=== PATIENT | male | born 1945 | race Caucasian/White ===

== ENCOUNTER 2019-04-30 05:49 | Emergency (ER) | payer OTHER ==
[~2019-04-30] VITALS: Ht 182.9 cm; Wt 115.2 kg
[~2019-04-30 05:49] MED LIST: ALLOPURINOL 10100 M1 PO; ASPIRIN81 M2 PO; AVAPRO300 MG PO; CARVEDILOL25 MG PO; DILTIAZEM 24HR240 MG PO; ENALAPRIL MALEA20 MG PO; HYDROCHLOROTHIA25 M1 PO; MOBIC7.5 M1 PO; POTASSIUM CHLO10 ME1 PO; SIMVASTATIN40 MG PO; TRAMADOL 50 MG50 MG PO
[2019-04-30] MEDS ORDERED: PROBIOTIC1 EAC7 PO (06:00)
[2019-04-30] MEDS ORDERED: VITAMIN D310 MC1 PO (06:01)
[2019-04-30] MEDS ORDERED: METFORMIN HCL500 M3 PO (06:02)
[2019-04-30] MEDS ORDERED: PLAQUENIL200 MG PO (06:06)
[2019-04-30] MEDS ORDERED: PROSCAR 5MG TABL5 M1 PO (06:06)
[2019-04-30] MEDS ORDERED: FARXIGA5 MG PO (06:07)
[2019-04-30] MEDS ORDERED: CARBIDOPA-LEVO1 EAC6 PO (06:08)
[2019-04-30] MEDS ORDERED: NF (06:11)
[2019-04-30 06:52] LABS: HEMATOCRIT 43.4 % (42.0-52.0); HEMOGLOBIN 14.6 gm/dL (14.0-18.0); MCH 31.2 pg (26.0-34.0); MCHC 33.6 g/dL (28.0-37.0); MCV 93.1 fL (80.0-100.0); PLATELET COUNT 124 thou/uL (150-400); RBC 4.66 mil/uL (4.50-6.00); RDW 14.4 % (10.5-14.5); WBC 11.8 thou/uL (4.0-11.0)
[2019-04-30 07:10] LABS: CALCIUM 11.5 mg/dL (8.5-10.1); CREATININE 1.6 mg/dL (0.7-1.3); POTASSIUM 4.2 mmol/L (3.5-5.1)
[2019-04-30 07:15] LABS: ALBUMIN 3.7 g/dL (3.4-5.0); TOTAL BILIRUBIN 4.2 mg/dL (<0.1-1.0); TOTAL PROTEIN 7.1 g/dL (6.4-8.2)
[2019-04-30 07:46] LABS: ABSOLUTE NEUTROPHILS 10.3 thou/uL (1.4-8.2)
[2019-04-30 07:47] LABS: ANISOCYTOSIS SLIGHT
[2019-04-30 07:55] LABS: URINE BILIRUBIN 1+ (Negative); URINE BLOOD NEGATIVE (Negative); URINE CLARITY CLEAR; URINE COLOR YELLOW; URINE GLUCOSE-RANDOM* 3+ (Negative); URINE KETONES NEGATIVE (Negative); URINE LEUKOCYTES-REFLEX NEGATIVE (Negative); URINE NITRITE-REFLEX NEGATIVE (Negative); URINE PROTEIN (DIPSTICK) NEGATIVE (Negative); URINE SPECIFIC GRAVITY 1.015 (1.005-1.035)
[2019-04-30 07:58] LABS: ICTOTEST (BILI CONFIRMATORY) Positive (Negative)
--- NOTE | 2019-04-30 08:21 | EKG ---
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
[2019-04-30 10:08] VITALS: BP 134/65
== END 2019-04-30 10:14 | disposition home or self-care (01) ==
LOC: ER 05:49
PROVIDERS: Emergency Medicine
DX: K76.89 Other specified diseases of liver (principal); R94.5 Abnormal results of liver function studies; M19.90 Unspecified osteoarthritis, unspecified site; I10 Essential (primary) hypertension; Z90.5 Acquired absence of kidney; Z88.0 Allergy status to penicillin; Z88.8 Allergy status to other drugs, medicaments and biological substances; Z85.46 Personal history of malignant neoplasm of prostate

== ENCOUNTER → 2019-07-22 | Outpatient (CLI) | payer OTHER ==
[~2019-07-22] MED LIST changes: +CARBIDOPA-LEVO1 EAC6 PO; +FARXIGA5 MG PO; +METFORMIN HCL500 M3 PO; +NF; +PLAQUENIL200 MG PO; +PROBIOTIC1 EAC7 PO; +PROSCAR 5MG TABL5 M1 PO; +VITAMIN D310 MC1 PO
== END ==
LOC: SJCVC 13:13
DX: I25.10 Atherosclerotic heart disease of native coronary artery without angina pectoris (principal); R94.31 Abnormal electrocardiogram [ECG] [EKG]; I12.9 Hypertensive chronic kidney disease with stage 1 through stage 4 chronic kidney disease, or unspecified chronic kidney disease; E11.22 Type 2 diabetes mellitus with diabetic chronic kidney disease; N18.9 Chronic kidney disease, unspecified; E78.00 Pure hypercholesterolemia, unspecified; G20 Parkinson's disease; I65.23 Occlusion and stenosis of bilateral carotid arteries; I42.9 Cardiomyopathy, unspecified; G47.33 Obstructive sleep apnea (adult) (pediatric); Z90.5 Acquired absence of kidney; Z79.899 Other long term (current) drug therapy

== ENCOUNTER → 2020-02-09 | Outpatient (CLI) | payer OTHER | LOC: SJCVC 12:54 | PROVIDERS: ATTEND Internal Medicine Cardiovascular Disease | DX: I25.10 Atherosclerotic heart disease of native coronary artery without angina pectoris (principal); R94.31 Abnormal electrocardiogram [ECG] [EKG]; R00.1 Bradycardia, unspecified; I11.9 Hypertensive heart disease without heart failure; E78.00 Pure hypercholesterolemia, unspecified; G20 Parkinson's disease; E11.22 Type 2 diabetes mellitus with diabetic chronic kidney disease; I13.10 Hypertensive heart and chronic kidney disease without heart failure, with stage 1 through stage 4 chronic kidney disease, or unspecified chronic kidney disease; N18.3 Chronic kidney disease, stage 3 (moderate); I42.9 Cardiomyopathy, unspecified; Z79.899 Other long term (current) drug therapy ==

== ENCOUNTER 2020-04-09 13:19 | Inpatient (IN) | payer OTHER ==
[~2020-04-09] VITALS: Ht 177.8 cm; Wt 99.3 kg
[2020-04-09 13:28] VITALS: BP 165/63
[2020-04-09 15:13] LABS: ABSOLUTE NEUTROPHILS 10.6 thou/uL (1.4-8.2); BASOPHILS 0.5 % (0.0-2.0); EOSINOPHILS 0.6 % (0.0-3.0); HEMATOCRIT 45.2 % (42.0-52.0); HEMOGLOBIN 14.8 gm/dL (14.0-18.0); LYMPHOCYTES 6.1 % (24.0-44.0); MCHC 32.7 g/dL (28.0-37.0); MONOCYTES 10.5 % (1.0-8.0); PLATELET COUNT 140 thou/uL (150-400); POLYS 82.3 % (36.0-66.0); RBC 4.76 mil/uL (4.50-6.00); RDW 13.8 % (10.5-14.5); WBC 12.8 thou/uL (4.0-11.0)
[2020-04-09 15:17] LABS: CALCIUM 9.4 mg/dL (8.5-10.1); CREATININE 5.3 mg/dL (0.7-1.3); POTASSIUM 5.3 mmol/L (3.5-5.1)
[2020-04-09 20:46] VITALS: BP 164/81
[2020-04-09 20:50] LABS: URINE BILIRUBIN NEGATIVE (Negative); URINE BLOOD 3+ (Negative); URINE CLARITY CLEAR; URINE COLOR YELLOW; URINE GLUCOSE-RANDOM* TRACE (Negative); URINE KETONES TRACE (Negative); URINE LEUKOCYTES-REFLEX TRACE (Negative); URINE NITRITE-REFLEX NEGATIVE (Negative); URINE PROTEIN (DIPSTICK) 1+ (Negative); URINE SPECIFIC GRAVITY 1.025 (1.005-1.035); URINE UROBILINOGEN 0.2 E.U./dl (0.2-1.0)
--- NOTE | 2020-04-09 20:59 | NUR ---
ATTEMPTED TO CALL REPORT AT 2058, WILL CALL BACK PER 4W
[2020-04-09 21:00] LABS: CASTS None Seen /LPF (None Seen); CRYSTALS None Seen /LPF (None Seen); URINE RBC >20 Many /HPF (0-2)
[2020-04-09 21:01] LABS: BACTERIA-REFLEX 1-9 Few /HPF (None Seen); SQUAMOUS 0-3 Few /LPF (0-3); URINE WBC-REFLEX 0-5 Rare /HPF (0-5)
[2020-04-09 21:18] VITALS: BP 164/81
[2020-04-09 21:33] VITALS: BP 168/81
--- NOTE | 2020-04-09 23:33 | NUR ---
Patient admitted from [facility] ED with the diagnosis of GONSALO and cholecystitis. Patient resides at home with his . brought patient to ED tonight due to not urinating for the last 24 hours. Patient has history of arthritis, HTN, umbilical hernia repair, left knee surgery, diet controlled DM, renal cancer, right nephrectomy, prostate cancer. IV in place to right hand. Howell cath in place to DD. Consult for Dr. Parkinson, Dr. eRddy, Dr. Manzano. Med surg tele. Currently NSR. [facility]. Reports that he has bilateral hearing aides but they are at home. Alert and oriented x2. Pleasantly confused. High fall risk precautions in place.
[2020-04-10 06:06] LABS: CALCIUM 8.6 mg/dL (8.5-10.1); MAGNESIUM 1.3 mg/dL (1.8-2.4); POTASSIUM 4.7 mmol/L (3.5-5.1)
[2020-04-10 06:10] LABS: CREATININE 3.4 mg/dL (0.7-1.3)
[2020-04-10 07:53] LABS: HEMATOCRIT 40.6 % (42.0-52.0); HEMOGLOBIN 13.3 gm/dL (14.0-18.0); MCH 30.8 pg (26.0-34.0); MCHC 32.8 g/dL (28.0-37.0); MCV 93.8 fL (80.0-100.0); RBC 4.33 mil/uL (4.50-6.00); RDW 13.9 % (10.5-14.5); WBC 8.4 thou/uL (4.0-11.0)
[2020-04-10 09:57] VITALS: BP 156/78
--- NOTE | 2020-04-10 13:07 | NUR ---
Received awake on bed. Alert to self and place, re-oriented from time to time; assisted in ADLs. Vital signs stable. On room air. On telemetry; no complains and signs of chest pain, crushing sensation and heaviness noted. On nothing per orem- mouth care done, ice chips offered as well. On blood sugar monitoring, taken and recorded accordingly. With blood sugar of 75 noted this AM, no PRN meds noted- Dr Parkinson informed; orders obtained for 25ml Dextrose 50, given as prescribed- blood sugar rechecked CB. With at bedside, update given. With payton in place- output measured and recorded accordingly. With NS at 125cc/hr infusing well at R hand; dressing C/D/I, wrapped in coban; on IV antibiotics; ongoing IV MG correction. Assisted in ADLs. With surgery consult- answering service called, will inform oncall physician. To continue monitoring patient.
[2020-04-10 15:30] VITALS: BP 162/74
[2020-04-10 16:40] VITALS: BP 159/84
[2020-04-10 19:30] VITALS: BP 107/56
--- NOTE | 2020-04-11 02:25 | NUR ---
PATIENT ALERT AND ORIENTED X3-4. FOLLOWS SIMPLE INSTRUCTIONS. COOPERATIVE AND PLEASANT. BAILEY TO D/D WITH MARY URINE. BS MONITORED PER ORDER. SOME CONFUSION, HOWEVER, EASILY REORIENTED. IVF INFUSING W/O COMPLICATION. RESTING QUIETLY. WILL MONITOR.
[2020-04-11 05:57] LABS: ALBUMIN 2.9 g/dL (3.4-5.0); PHOSPHORUS 2.7 mg/dL (2.5-4.9)
[2020-04-11 06:06] LABS: CREATININE 1.8 mg/dL (0.7-1.3)
[2020-04-11 08:35] VITALS: BP 177/85
[2020-04-11 14:09] VITALS: BP 168/83
[2020-04-11 15:11] VITALS: BP 179/90
--- NOTE | 2020-04-11 15:32 | NUR ---
PT ALERT AND ORIENTED TIMES THREE WITH PERIODS OF CONFUSION. PT C/O BACK PAIN PRN PAIN MEDICATIONS GIVEN. PT TOLERATES MEDS AND MEALS. PT AT BEDSIDE WILL CONTINUE TO MONITOR
[2020-04-11 19:14] VITALS: BP 178/96
--- NOTE | 2020-04-12 00:54 | NUR ---
PATIENT AOX1 CONFUSED AND FORGETFUL THIS SHIFT. PATIENT WAS AGITATED TRYING TO REMOVE THE IV AND REMOVE BAILEY. PATIENT WAS YELLING AT STAFF TO GET OUT OF HIS HOUSE. CALLED MATCHBOOK MAKER NEW ORDER OF [place]. SCD ON. FALL PRECAUTION IN PLACE.PATIENT IN BED ASLEEP AT THIS TIME BREATHING REGULAR AND UNLABOURED.
[2020-04-12 06:21] LABS: CALCIUM 9.3 mg/dL (8.5-10.1); CREATININE 2.1 mg/dL (0.7-1.3); PHOSPHORUS 2.7 mg/dL (2.5-4.9); POTASSIUM 3.7 mmol/L (3.5-5.1)
--- NOTE | 2020-04-12 08:36 | HC ---
[facility] [place] [address] CONSULTATION Name: CELESTINA RUFFIN Room #: 454-P [facility] IN M.R.#: [id number] Admission: 04/09/20 Attend Phys: Geeta Parkinson MD Discharge: Date of : 41 Report #: [id number] THIS REPORT FOR: cc: Brice Ventura MD, Bernard O. MD Al-Absi, Ahmed I. MD ~ RENAL CONSULTATION REASON FOR CONSULTATION: Elevated creatinine. REASON FOR PRESENTATION: Confusion, difficulty urination. HISTORY OF PRESENT ILLNESS: This is a 74-year-old with history of chronic kidney disease, renal cell carcinoma with metastasis to the right rib and shoulder, diabetes mellitus, hypertension and hyperlipidemia. He is known to have CKD for a long time. He follows with me in the clinic. Baseline creatinine is around 1.5. He presented with altered mental status. reported that he had required some treatment for urinary tract infection in the past. Along with the confusion, the patient's urine output has dropped significantly. The patient presented to the Emergency Room where he was found to have an elevated creatinine at 5.3. He was also to have some evidence of left sided hydronephrosis. Gallbladder was extremely distended suspicious for developing cholecystitis. When interviewed, the patient denies any active current symptoms. However, he has Parkinson disease and his mental health history deteriorated in the last few years and he is not able to provide me with any details. PAST MEDICAL HISTORY: 1. Renal cell carcinoma. 2. Post-nephrectomy. 3. Diabetes mellitus. 4. Hypertension. 5. Hyperlipidemia. 6. Parkinson disease. 7. Prostate cancer. 8. Stage 3 chronic kidney disease. 9. Post left knee replacement. SOCIAL HISTORY: He lives with his . No drug or alcohol abuse. FAMILY HISTORY: Significant for brain cancer. ALLERGIES: PENICILLIN and VALSARTAN. MEDICATIONS: [facility] [address] [place] [address] CONSULTATION Name: LALYCELESTINA Aditya Room #: 454-P [facility] IN [facility].#: [id number] Admission: 04/09/20 Attend Phys: Geeta Parkinson MD Discharge: Date of : 41 Report #: [id number] 1. Carvedilol. 2. Irbesartan. 3. Metformin. 4. Cholecalciferol. REVIEW OF SYSTEMS: Altered mental status, unable to obtain the details of his review of systems. PHYSICAL EXAMINATION: VITAL SIGNS: Temperature 36.5, blood pressure 168/81, pulse rate is 55. HEAD AND NECK: No jugular venous distention. CHEST: Decreased air entry bilaterally, but no crackles. CARDIOVASCULAR: No rub detected. ABDOMEN: Soft, nontender. LOWER EXTREMITIES: There is no evidence of edema. LABORATORY VALUES: Reviewed. Sodium is 144. Chloride is 109, carbon dioxide is 20, BUN is 43, creatinine is down to 3.4 from 5.3. Magnesium is 1.3. IMPRESSION AND PLAN: 1. Acute kidney injury. 2. Known chronic kidney disease with a baseline creatinine of around 1.5-1.6. 3. Ongoing gallbladder issues. 4. Renal cell carcinoma with bone metastasis. 5. The patient's presentation is consistent with an acute kidney injury due to prerenal conditions. He is currently being treated as a case of cholecystitis. He is also being treated as a case of urinary tract infection. Continue with antibiotic coverage. 6. Continue with the IV fluids. 7. Continue to monitor daily urine output, electrolytes. 8. Replace magnesium. 9. His kidney function is already improving and hopefully with IV fluid and antibiotic, his creatinine will continue to improve toward his baseline. We will continue to follow along. <ELECTRONICALLY SIGNED> By: Joy Manzano MD 04/12/20 0836 0619 [id number] Joy Manzano MD /nt
[2020-04-12 09:34] VITALS: BP 170/73
--- NOTE | 2020-04-12 11:01 | NUR ---
Received awake on bed. Due medications given as prescribed, able to swallow meds w/o difficulty. On room air. Vitals signs stable- with BP elevation noted, scheduled BP meds given as prescribed, BP rechecked afterwards, WNL. On telemetry; no complains and signs of chest pain, crushing sensation and heaviness; running SR-SB at times. On heart healthy diet- tolerating well, no nausea, no vomiting and no abdominal pain noted; improving appetite. On blood sugar monitoring, taken and recorded accordingly. Falls bundle in place. With payton in place- output measured and recorded; draining well, no leaks noted. With D51/2NS at 100cc/hr, infusing well at R hand- IV site wrapped in coban; changed to D5%, infusing at 100cc/hr, changed as ordered. Assisted in ADLs. With at bedside-update given. Pt seen and examined by Dr Ratliff- suggested to have payton out and observed- if ok with Dr Parkinson; Dr Parkinson informed and said to leave payton for now since pt came in with retention, possible d/c with payton and see urologist as outpatient- pt's informed and aware. To continue monitoring patient.
--- NOTE | 2020-04-12 12:01 | NUR ---
PT ADMITTED RELATED TO GONSALO, ACUTE CHOLECYSTITIS, UTI, AMS. CM REVIEWED CHART AND SPOKE WITH CARE TEAM. CM CALLED AND SPOKE WITH PT'S SPOUSE AT BEDSIDE THIS DAY. SHE INDIATED THAT THEY RESIDE IN AN INDEPENDENT LIVING APARTMENT AT [facility]. SHE INDICATED THAT THEY HAVE ELEVATOR ACCESS AND NO STEPS. 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 SHE INDICATED THAT PT HAD BEEN INDEPDENT WITH ADLS ENTRY TABLE OPERATOR. SHE STATED THAT SHE ANTICIAPTES PT RETURNING HOME ONCE MEDICALLY STABLE. SHE MENTIONED THAT PT MAY NEED TO DISHARGE WITH A BAILEY CATHETER IN PLACE AND IF THAT'S THE CASE SHE MIGHT APPRECIATE SOME HH SERVICES. THEY WOULD LIKE TO USE [facility]. REFERRAL TO BE SENT. CARE TEAM INDICATED POSSIBLE DC TOMORROW. CM TO FOLLOW INDICATED WITH DC PLANNING.
[2020-04-12 16:23] VITALS: BP 132/58
[2020-04-12 20:08] VITALS: BP 147/74
--- NOTE | 2020-04-13 04:42 | NUR ---
ASSUMED CARE OF PT AT 1900HRS. PT AOX1-2 AND IS CONFUSED/FORGETFUL. FALL PRECAUTION IN PLACE. BAILEY IN PLACE AND IS PATIENT. PT DENIES PAIN, NAUSEA OR SOA. ASSESSMENT CHARTED. PT WAS PULLING ON LINES BUT WAS REDIRECTABLE THIS SHIFT. PT RUNS SB ON TELE. PT WAS ABLE TO EGT COMFORTABLE AND SLEEP PART OF THE SHIGT. VSS AND NO S/S OF ACUTE DISTRESS. WILL CONTINUE TO MONITOR.
[2020-04-13 06:20] LABS: ALBUMIN 2.9 g/dL (3.4-5.0); CALCIUM 9.5 mg/dL (8.5-10.1); CREATININE 1.4 mg/dL (0.7-1.3); PHOSPHORUS 2.5 mg/dL (2.5-4.9); POTASSIUM 3.4 mmol/L (3.5-5.1)
[2020-04-13 07:10] VITALS: BP 169/79
[2020-04-13] MEDS ORDERED: FELODIPINE 5 MG5 M1 PO (10:14)
[2020-04-13] MEDS ORDERED: LEVOFLOXACIN500 MG PO (10:18)
[2020-04-13 10:26] VITALS: BP 169/79
--- NOTE | 2020-04-13 10:37 | NUR ---
patient is alert and oriented to person.He is on room air ,his meds were administered to him and his vital signs are within normal range.
--- NOTE | 2020-04-13 11:53 | NUR ---
I have reviewed the student documentation.
--- NOTE | 2020-04-13 15:05 | NUR ---
CM CALLED [facility] THIS AM AND THEY INDICATED THAT THEY HAD RECEIVED REFERRAL AND WERE ABLE TO ACCEPT PT FOR SERVICES UPON DC. KOREY INDICATED THAT PT IS MEDICALLY STABLE TO DC HOME WITH HH THIS DAY. PT'S SPOUSE MENTIONED TO PT AND NURSE THIS AFTERNOON THAT SHE IS CONCERNED ABOUT PT RETURNING HOME AT THIS TIME. CM MET WITH HER AND SHE INDICATED THAT SHE IS INTERESTED IN SEEING IF PT CAN GO TO [facility]. REFERRAL FAXED OVER THERE CM SPOKE WITH JENNY IN ADMISSIONS. CM NOTIFIED PHYSICAIN. CM AWAITING RESPONSE. CM TO FOLLOW INDICATED WITH DC PLANNING.
[2020-04-13 15:35] VITALS: BP 162/82
--- NOTE | 2020-04-13 16:25 | NUR ---
ASSUMED PT CARE THIS AM. PT VSS, A&OX1. PT SLEEPING MOST OF SHIFT. PT FED BY AT BEDSIDE. BAILEY CATHETER PATENT. IV PATENT. PT REFUSING [id number]. PT HAS NO COMPLAINTS OF PAIN. PT ON TELE. REPORTS MENTAL STATUS CHANGE FROM YESTERDAY, SHE TALKED TO DR SAHU ABOUT IT. HE RELAYED TO HER THAT IT COULD BE DUE TO MEDICATION BEING GIVEN AND UTI PER . FACILITY CALLED, NO ANSWER AND NO ANSWERING SERVICE.
== END 2020-04-13 16:45 | DRG 871 ==
LOC: ER 13:19 → 4W 20:09 → EROBS 20:09 → 4W 21:07
PROVIDERS: Emergency Medicine; Hospitalist; Nurse Practitioner Family; ADMIT Hospitalist; ATTEND Hospitalist
DX: A41.9 Sepsis, unspecified organism (principal); G93.41 Metabolic encephalopathy; N17.9 Acute kidney failure, unspecified; N39.0 Urinary tract infection, site not specified; E87.2 Acidosis; K81.9 Cholecystitis, unspecified; E11.22 Type 2 diabetes mellitus with diabetic chronic kidney disease; E78.5 Hyperlipidemia, unspecified; G20 Parkinson's disease; F02.80 Dementia in other diseases classified elsewhere, unspecified severity, without behavioral disturbance, psychotic disturbance, mood disturbance, and anxiety; M19.90 Unspecified osteoarthritis, unspecified site; E86.0 Dehydration; M10.9 Gout, unspecified; N40.0 Benign prostatic hyperplasia without lower urinary tract symptoms; N18.30 Chronic kidney disease, stage 3 unspecified; R31.9 Hematuria, unspecified; I12.9 Hypertensive chronic kidney disease with stage 1 through stage 4 chronic kidney disease, or unspecified chronic kidney disease; Z96.652 Presence of left artificial knee joint; Z20.828 Contact with and (suspected) exposure to other viral communicable diseases; Z85.528 Personal history of other malignant neoplasm of kidney; Z85.46 Personal history of malignant neoplasm of prostate; Z92.3 Personal history of irradiation; Z79.899 Other long term (current) drug therapy; Z88.0 Allergy status to penicillin; Z88.8 Allergy status to other drugs, medicaments and biological substances
CPT/HCPCS: 10045